=== PATIENT | female | born 1985 | race Caucasian/White ===

== ENCOUNTER 2018-08-24 20:42 | Inpatient (IN) | payer BC ==
[2018-08-24] MEDS ORDERED: Lactated Ringer's 1,000 ML IV SCH (21:45)
[2018-08-24 22:06] LABS: BASO # 0.1 K/uL (0.0-0.2); BASO % 0.8 % (0.0-2.0); EOS # 0.1 K/uL (0.0-0.7); EOS % 0.4 % (0.0-4.0); HEMOGLOBIN 11.2 g/dL (11.0-16.0); LYMPH % 14.8 % (20.0-40.0); MEAN CELL VOLUME 80.8 fL (81.0-99.0); MEAN CORPUSCULAR HEMOGLOBIN 26.5 pg (27.0-31.0); MEAN CORPUSCULAR HGB CONC 32.8 g/dL (33.0-37.0); MEAN PLATELET VOLUME 10.6 fL (7.2-11.7); MONO # 0.7 K/uL (0.0-0.8); MONO % 5.1 % (0.0-10.0); NEUT # 10.7 K/uL (1.8-7.0); NEUT % 78.9 % (50.0-75.0); NRBC % 0.1 % (0.0-2.0); RBC 4.22 Mil/uL (3.80-5.20); RED CELL DISTRIBUTION WIDTH 14.3 % (11.5-14.5); WHITE BLOOD COUNT 13.5 K/uL (4.8-10.8)
[2018-08-24 22:12] LABS: SQUAMOUS EPITHIAL 6 /hpf (0-5); URINE BACTERIA FEW (<OCC); URINE BILIRUBIN NEGATIVE (NEGATIVE); URINE BLOOD 1+ (NEGATIVE); URINE CLARITY Clear (Clear); URINE COLOR Straw (YELLOW); URINE GLUCOSE (UA) NORMAL (Normal); URINE LEUKOCYTE ESTERASE 2+ Leu/uL (Negative); URINE PROTEIN NEGATIVE (NEGATIVE); URINE UROBILINOGEN NORMAL mg/dL (0.2-1.0)
[2018-08-24 22:19] LABS: ALB/GLOB RATIO 1.1 (1.0-2.1); ALBUMIN 3.8 g/dL (3.5-5.0); BLOOD UREA NITROGEN 9 mg/dL (7-17); CALCIUM 9.3 mg/dl (8.6-10.4); GFR NON-AFRICAN AMERICAN > 60
[2018-08-24 22:22] LABS: ALT/SGPT 15 U/L (9-52); AST/SGOT 29 U/L (14-36)
--- NOTE | 2018-08-24 23:43 | OBHP ---
Datetime: 08/24/2018 22:03 IP Adm Impression: Term, intrauterine IP Chief Complaint Other: Prolactinoma IP Admit Plan: Admit to unit; Initiate labor induction protocol Admit Comment, IP Provider: Patient is a 33 year old at 39w0d MONICA 08/31/18 who presents to labo r and delivery c/o ctx every 5 min 05/28 wht muoc dischage, no vb, +FM. Patient is doing well, offers no complaints at this time. She endorses +FM, denies CTX, VB, or LOF. 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 [facility]: 13 x regular x 5 days Denies fibroids, ovarian cysts, STIs Denies abnormal pap smears Allergies: NKDA Medications: PNV, Synthroid 100mcg Medical History: Prolactinoma, Hypothyroidism Surgical History: Lump removal from left side of her head Social History: Denies alcohol, tobacco, drug use Family History: Mother - DM; Father - healthy PE: See above A/P: Patient is a 33 year old at 39w0d IOL secondary to oligohydramnios -Stable, afebrile -Admit to unit -CEFM and TOCO -Admission labs: CBC, CMP, TS, UA -LR @ 125cc/hr -Cervidil for cervical rippening -Anesthesia consult prn FHR - Baseline A Provider: 150 Contraction Comments Provider: q4-5min Comments, ACOG Physical Exam: VSS Gen: AAOx3 Abd: Soft, gravid Ext: No clubbing, cyanosis, edema SVE: /-3 Bedsie US vtx, cari 4.3cm IP Hx Assessment: The History has been Reviewed and is Current EGA AdmitDate IP: 39.0 Vital Signs Provider: Reviewed; Within Normal Limits IP Chief Complaint: Uterine contractions NICHD Variability Prov Fetus A: Moderate 6-25bpm NICHD Accel Fetus A IP Provider: 15X15 FHR Category Provider Fetus A: Category I NICHD Decel Fetus A IP Provider: None Dilatation, Provider: 1 Effacement, Provider: 50 Station, Provider: -3
--- NOTE | 2018-08-24 23:46 | OBADHP ---
Datetime: 08/24/2018 22:03 IP Chief Complaint Other: Prolactinoma Admit Comment, IP Provider: Patient is a 33 year old at 39w0d MONICA 08/31/18 who presents to labo r and delivery c/o ctx every 5 min 05/28 wht muoc dischage, no vb, +FM. Patient is doing well, offers no complaints at this time. She endorses +FM, denies CTX, VB, or LOF. Issues: Denies OB Hx: 1. Current [employer] Hx: LMP 11/24/17 [facility]: 13 x regular x 5 days Denies fibroids, ovarian cysts, STIs Denies abnormal pap smears Allergies: NKDA Medications: PNV, Synthroid 100mcg Medical History: Prolactinoma, Hypothyroidism Surgical History: Lump removal from left side of her head Social History: Denies alcohol, tobacco, drug use Family History: Mother - DM; Father - healthy PE: See above A/P: Patient is a 33 year old at 39w0d IOL secondary to oligohydramnios -Stable, afebrile -Admit to unit -CEFM and TOCO -Admission labs: CBC, CMP, TS, UA -LR @ 125cc/hr -Cervidil for cervical rippening -Anesthesia consult prn FHR - Baseline A Provider: 150 Contraction Comments Provider: q4-5min Comments, ACOG Physical Exam: VSS Gen: AAOx3 Abd: Soft, gravid Ext: No clubbing, cyanosis, edema SVE: /-3 Bedsie US vtx, cari 4.3cm IP Hx Assessment: The History has been Reviewed and is Current Vital Signs Provider: Reviewed; Within Normal Limits IP Chief Complaint: Uterine contractions NICHD Variability Prov Fetus A: Moderate 6-25bpm NICHD Accel Fetus A IP Provider: 15X15 FHR Category Provider Fetus A: Category I NICHD Decel Fetus A IP Provider: None Dilatation, Provider: 1 Effacement, Provider: 50 Station, Provider: -3 EGA AdmitDate IP: 39.0 IP Adm Impression: Term, intrauterine IP Admit Plan: Admit to unit; Initiate labor induction protocol
[2018-08-25] MEDS ORDERED: DiphenhydrAMINE 50 mg/ml Inj IVP STA (04:02)
[2018-08-25] MEDS ORDERED: Nalbuphine HCL 10 mg/ml Ampule IVP ONE (04:02)
[2018-08-25] MEDS ORDERED: Nalbuphine HCL 10 mg/ml Ampule ONE (04:31)
[2018-08-25] MEDS ORDERED: DiphenhydrAMINE 50 mg/ml Inj ONE (04:32)
[2018-08-25] MEDS ORDERED: Oxytocin 30 UNIT 30 UNITS/500 ML BAG IV SCH (09:20)
--- NOTE | 2018-08-25 09:44 | OBPN ---
Datetime: 08/25/2018 09:39 IP Progress Impression: Normal progression of labor IP Progress Plan: Continue present management Membranes, Provider: Ruptured Amniotic Fluid Color, Provider: Bloody Contraction Comments Provider: q 2-5 min FHR - Baseline A Provider: 140 Gestation - Est Wks by US: 39.1 Presentation-Admit: Vertex IP Progress Note Comment: pt iris and edamiend reprots cervidl feel out and has lof clear. pt preort s feelign better afte IV pain medaion, denies, vb +FM VSS VE: -2 A/P @ 39+ wks in labor pitocin as per protocl conto to cand emf analgyes prn Vital Signs Provider: Reviewed; Within Normal Limits NICHD Variability Prov Fetus A: Moderate 6-25bpm Dilatation, Provider: 4 Effacement, Provider: 60 Station, Provider: -2 NICHD Decel Fetus A IP Provider: None Datetime: 08/24/2018 22:03 NICHD Accel Fetus A IP Provider: 15X15 FHR Category Provider Fetus A: Category I
[2018-08-25] MEDS ORDERED: Oxytocin 30 UNIT 30 UNITS/500 ML BAG IV ONE (09:57)
[2018-08-25] MEDS ORDERED: Bupivacaine HCl/FentaNYL Cit 100 ML EPI ONE (10:06)
--- NOTE | 2018-08-25 11:40 | OBPN ---
Datetime: 08/25/2018 11:34 IP Progress Impression: Normal progression of labor; Non-reassuring heart rate IP Informed Consent Obtain: Vaginal Delivery IP Progress Plan: Continue present management Membranes, Provider: Ruptured Contraction Comments Provider: q 2 min FHR - Baseline A Provider: 125 Gestation - Est Wks by US: 39.1 IP Progress Note Comment: pt seen and examiend pt with late declien s/p pitoicn, oxygen, eft later with spotnat resul to baseline vss ve 5cm a/p @ 39 wks in labor con tcurre ntamnent Vital Signs Provider: Reviewed; Within Normal Limits NICHD Variability Prov Fetus A: Moderate 6-25bpm Dilatation, Provider: 5 Effacement, Provider: 80 Station, Provider: -2 NICHD Decel Fetus A IP Provider: Late
[2018-08-25] MEDS ORDERED: Oxycodone/Acetaminophen 5/325 mg Tab PO PRN ×2 (17:25)
[2018-08-25] MEDS ORDERED: Benzocaine/Menthol 20%-0.5% Topical Spray (60 ml) TOP PRN (17:25)
--- NOTE | 2018-08-25 17:29 | OBDS ---
MATERNAL INFORMATION Provider Comments: pt was fully dilated and pushing. atrumatic, sponatneous delivery of head in CHRIS positin.Nuchal cord noted x 1 reduced. Atrauatmic, spontaneous delivery of anterior followed by poste rior shoulder followed by delivery of the body. Both oral and nasal passages of the baby were bulb oates ctioned. umbilcal cord was clamped adn cut adn baby was handed to [facility] on abdomen with RN perry banks. Cord blood and cord gases collectd and sent x 2. Spontaneous delivery of intact placenta with memb ranes. Fundus firm, good hemostasis. second degree peirneal laceration noted nda repaired with 2-0 a nd 3-0 hcormic. .No complications live female apgars 9,9 ebl 200ml weight 6lbs 4ounces no complications LABOR SUMMARY EDC: 08/31/2018 00:00 No. Babies in Womb: 1 LABOR INFORMATION Cervical Ripening Agents: Cervidil Group B Beta Strep: Negative MEMBRANES Membranes Rupture Method: Spontaneous Amniotic Fluid Color: Clear Amniotic Fluid Amount: Small Amniotic Fluid Odor: Normal STAGES OF LABOR Stage 3 hrs: 0 Stage 3 min: 9 BABY A INFORMATION Infant Delivery Date/Time: 08/25/2018 17:08 Method of Delivery: Vaginal Born in Route : No : N/A Forceps: N/A Vacuum Extraction: N/A Shoulder Dystocia : No SHOULDER DYSTOCIA BABY A Delivery Date/Time: 08/25/2018 17:08 PRESENTATION/POSITION BABY A Presentation: Cephalic Cephalic Presentation: Vertex Vertex Position: Left Occipital Anterior Breech Presentation: N/A PLACENTA INFORMATION BABY A Placenta Delivery Time : 08/25/2018 17:17 Placenta Method of Delivery: Spontaneous Placenta Status: Delivered INFANT INFORMATION BABY A Gestational Age at Delivery: 39.1 Gestational Status: Term Outcome : Liveborn Condition : Stable Sex: Female IDENTIFICATION/MEDS BABY A ID Band Number: [id number] ID Band Location: Left Leg; Left Arm Sensor Applied: Yes Sensor Number: [id number] Sensor Location : Cord Clamp WEIGHT/LENGTH BABY A Birthweight (gms): 2845 Weight (lb): 6 Weight (oz): 4
--- NOTE | 2018-08-26 04:16 | OBDCSUM ---
Datetime: 08/26/2018 04:13 Discharged to, Provider: Home Follow up at, Provider: Dr Peralta Disch Instr Activity: Normal activity Disch Instr Diet: Regular Discharge Instructions, Provider: Routine instructions given Discharge Diagnosis, Provider: Term Delivered Discharge Time: 08/26/2018 04:13 Follow up in weeks, Provider: 6 weeks Disch Referrals: None Contraception discussed, Prov: Yes Disch Activity Restrictions: No sexual activity; Nothing in vagina - [place], tampons, douche Discharge Comment, Provider: dc in am Contraception after Delivery: Not Planning to Use
--- NOTE | 2018-08-26 04:16 | OBPPN ---
Datetime: 08/26/2018 04:12 PP Pain Prov: Within normal limits PP Nausea Prov: Denies PP Flatus Prov: Yes PP BM Prov: No PP Breasts Prov: Normal PP Heart Prov: Normal PP Lungs Prov: Normal PP Abdomen/Uterus Prov: Normal PP Lochia Prov: Normal PP Vulva/Perineum Prov: Normal PP CVA Tenderness Prov: Normal PP Extremities Prov: Normal PP C/S Incision Prov: Not Applicable PP Progress Prov: Normal PP Impression Prov: Normal progression PP Progress Note Prov: pt seen adn examied and reprots pain rlq controlld with medicaion. pt ambuiat n,b odiign, passing flatus, tolerated regular diet. pt denies nay fever, chills, nause, vomiting cp, sob VSS PE GEN NAD AAO x 3 RESP: CTAB: CVS:RRR< +S1/S2 ABDS: soft, NT/ND, +BS, no gurding ,no rebound tendenress ,no rigidity, no uterine tenderss Fundus: firm, below level of umbiulcs VE: minimal lohcia, non foul smelling EXT; no calf tenderness, negative carroll's sign A/P s/p ppd #1 doign well pain mangnet reugla renanet encourage bresat feeidn adn ambluaiton Vital Signs Provider PP: Reviewed; Within Normal Limits
[2018-08-26 07:18] LABS: BASO # 0.1 K/uL (0.0-0.2); BASO % 0.4 % (0.0-2.0); EOS # 0.1 K/uL (0.0-0.7); EOS % 0.7 % (0.0-4.0); HEMOGLOBIN 10.5 g/dL (11.0-16.0); LYMPH # 2.1 K/uL (1.0-4.3); LYMPH % 14.1 % (20.0-40.0); MEAN CELL VOLUME 80.1 fL (81.0-99.0); MEAN CORPUSCULAR HEMOGLOBIN 27.4 pg (27.0-31.0); MEAN CORPUSCULAR HGB CONC 34.2 g/dL (33.0-37.0); MONO # 0.8 K/uL (0.0-0.8); MONO % 5.7 % (0.0-10.0); NEUT # 11.7 K/uL (1.8-7.0); NEUT % 79.1 % (50.0-75.0); RBC 3.84 Mil/uL (3.80-5.20); RED CELL DISTRIBUTION WIDTH 14.2 % (11.5-14.5); WHITE BLOOD COUNT 14.8 K/uL (4.8-10.8)
[2018-08-26] MEDS ORDERED: Magnesium Hydroxide Susp 30 ml UD PO ONE (08:35)
[2018-08-26] MEDS: Multiple Vitamins Tab PO SCH (09:48)
[2018-08-26 14:01] LABS: BASO # 0.1 K/uL (0.0-0.2); BASO % 0.4 % (0.0-2.0); EOS # 0.1 K/uL (0.0-0.7); EOS % 0.8 % (0.0-4.0); LYMPH # 2.1 K/uL (1.0-4.3); LYMPH % 16.1 % (20.0-40.0); MEAN CELL VOLUME 80.7 fL (81.0-99.0); MEAN CORPUSCULAR HEMOGLOBIN 27.3 pg (27.0-31.0); MEAN CORPUSCULAR HGB CONC 33.8 g/dL (33.0-37.0); MEAN PLATELET VOLUME 10.3 fL (7.2-11.7); MONO # 0.7 K/uL (0.0-0.8); MONO % 5.3 % (0.0-10.0); NEUT # 10.1 K/uL (1.8-7.0); NEUT % 77.4 % (50.0-75.0); RBC 3.67 Mil/uL (3.80-5.20); RED CELL DISTRIBUTION WIDTH 14.4 % (11.5-14.5)
[2018-08-27 00:53] VITALS: O2SAT 99
[2018-08-27] MEDS ORDERED: Levothyroxine 75 MCG TAB PO SCH (06:30)
[2018-08-27] MEDS: Multiple Vitamins Tab PO SCH (10:06)
[2018-08-27] MEDS ORDERED: Influenza Vaccine 60 MCG/0.5 ML SYR (3 yr & up) IM ONE (15:00)
[2018-08-27 20:33] VITALS: BP 125/77; PULSE 99; RESP 18; TEMP 97.2
--- NOTE | 2018-08-27 20:53 | OBPPN ---
Datetime: 08/27/2018 12:00 PP Pain Prov: Within normal limits PP Breasts Prov: Not Done PP Heart Prov: Normal PP Lungs Prov: Normal PP Abdomen/Uterus Prov: Normal PP Lochia Prov: Normal PP Vulva/Perineum Prov: Normal PP CVA Tenderness Prov: Normal PP C/S Incision Prov: Normal PP Progress Prov: Normal PP Comments Phys Exam Prov: Fundus firm, non-tender and below umbilicus PP Impression Prov: Normal progression PP Plan Prov: Discharge PP Progress Note Prov: PPD # 2 S/P without complications Stable and Satisfactory condition and Recovery Requesting D/C home Advised to increase po water intake F/Up in office in 6 weeks or as needed Cotinue Pelvic Rest x 6-8 weeks IP PP Procedures: None Vital Signs Provider PP: Reviewed; Within Normal Limits
--- NOTE | 2018-08-27 20:53 | OBDCSUM ---
Datetime: 08/27/2018 13:44 Discharged to, Provider: Home Follow up at, Provider: Dr. Luh Peralta Disch Instr Activity: Normal activity Disch Instr Diet: Regular Discharge Diet restrict Prov: none Discharge Instructions, Provider: Routine instructions given Discharge Diagnosis, Provider: Term Delivered Discharge Time: 08/27/2018 14:30 Follow up in weeks, Provider: 10/04/2018 Call for appointment Disch Referrals: None Contraception discussed, Prov: Yes Disch Activity Restrictions: No exercising; No lifting; No driving; Minimize walking; Minimize stair -climbing; No sexual activity; Nothing in vagina - [place], tampons, douche Discharge Comment, Provider: PPD # 2 S/P without complications Stable and Satisfactory condition and Recovery Requesting D/C home Advised to increase po water intake F/Up in office in 6 weeks or as needed Continue Pelvic Rest x 6-8 weeks Discharged home in Stable and Satisfactory condition and with Rx for Motrin, per Dr. Peralta Contraception after Delivery: Undecided
== END 2018-08-27 15:50 | disposition home or self-care (01) | DRG 807 ==
LOC: C.EROB 20:42 → C.4D 21:15 → C.4M 08-25 20:45
PROVIDERS: ADMIT Obstetrics & Gynecology; ATTEND Obstetrics & Gynecology
PROC: 3E0P7VZ Introduction of Hormone into Female Reproductive, Via Natural or Artificial Opening (ICD-10-PCS; 2018-08-24)
PROC: 10E0XZZ Delivery of Products of Conception, External Approach (ICD-10-PCS; principal; 2018-08-25)
PROC: 0KQM0ZZ Repair Perineum Muscle, Open Approach (ICD-10-PCS; 2018-08-25)
DX: O41.03X0 Oligohydramnios, third trimester, not applicable or unspecified (principal); O70.1 Second degree perineal laceration during delivery; O76 Abnormality in fetal heart rate and rhythm complicating labor and delivery; O99.284 Endocrine, nutritional and metabolic diseases complicating childbirth; E03.9 Hypothyroidism, unspecified; O69.81X0 Labor and delivery complicated by cord around neck, without compression, not applicable or unspecified; Z3A.39 39 weeks gestation of pregnancy; Z37.0 Single live birth